=== PATIENT | male | born 1955 | race Caucasian/White ===

== ENCOUNTER 2022-07-09 06:11 | Inpatient (IN) | payer MEDICARE ==
[2022-07-04 13:50] VITALS: BMI 37.2
[2022-07-09] MEDS ORDERED: Levofloxacin 500 mg/D5W 100 ml Premix Bag ONE (08:13)
[2022-07-09] MEDS ORDERED: Iopamidol 30 ML ONE (08:43)
[2022-07-09] MEDS ORDERED: fentaNYL PF 100 MCG/2 ML SYRINGE ONE ×2 (08:46→08:55)
[2022-07-09 08:47] LABS: SARS-CoV-2 NAA Rapid Test DETECTED (NotDetected)
[2022-07-09] MEDS ORDERED: Glycopyrrolate 0.2 MG/ML 5 ML SYRINGE ONE (11:55)
[2022-07-09] MEDS ORDERED: Esmolol 100 MG/10 ML VIAL ONE (11:55)
[2022-07-09] MEDS ORDERED: Calcium Chloride 1 GM/10 ML Abboject SYRINGE ONE (11:55)
[2022-07-09] MEDS ORDERED: PROPOFOL 200 MG/20 ML VIAL ONE (11:55)
[2022-07-09] MEDS ORDERED: Phenylephrine 10 MG/ML VIAL ONE ×2 (11:55→12:14)
[2022-07-09] MEDS ORDERED: Ondansetron PF 4 MG/2 ML Vial ONE (11:55)
[2022-07-09] MEDS ORDERED: ePHEDrine 50 MG/ML VIAL ONE (11:55)
[2022-07-09] MEDS ORDERED: Rocuronium Bromide 10 MG/ML (10ML VIAL) ONE (11:55)
[2022-07-09] MEDS ORDERED: NEOSTIGMINE 3 MG/3 ML SYR 3 MG/3 ML SYRINGE ONE (11:55)
[2022-07-09] MEDS ORDERED: Norepinephrine 4 MG/4 ML VIAL ONE (12:14)
[2022-07-09] MEDS ORDERED: PHENYLEPHRINE-NS 100 MCG/ML 10 ML SYRINGE ONE (12:14)
[2022-07-09] MEDS ORDERED: B & O PR PRN (15:09)
[2022-07-09] MEDS ORDERED: D5 1/2 NS w/20 mEq KCL 1,000 ML IV SCH (15:15)
[2022-07-09] MEDS ORDERED: Ondansetron HCl/PF 4 MG/2 ML Vial IVP PRN (15:16)
[2022-07-09] MEDS ORDERED: Promethazine HCl 25 MG/ML VIAL IVPB PRN (15:16)
[2022-07-09] MEDS ORDERED: Promethazine HCl 25 MG/ML VIAL IM PRN (15:16)
[2022-07-09] MEDS ORDERED: B & O 30 MG SUPP PR PRN (15:42)
[2022-07-09] MEDS ORDERED: B & O 30 MG SUPP PR SCH (15:45)
[2022-07-09] MEDS ORDERED: HumaLOG 300 UNITS/3 ML VIAL SC PRN (16:04)
[2022-07-09] MEDS ORDERED: Dextrose 50% Abboject 50 ML SYRINGE SLOW IVP PRN (16:04)
[2022-07-09] MEDS ORDERED: Dextrose 5% in Water 1,000 ML IV PRN (16:04)
[2022-07-09] MEDS ORDERED: Pharmacy to Dose REMDESIVIR IVPB PRN (16:04)
[2022-07-09] MEDS ORDERED: Hyoscyamine Sulfate SL 0.125 mg Tablet ONE (16:05)
[2022-07-09] MEDS ORDERED: Hyoscyamine Sulfate SL 0.125 mg Tablet SL PRN (16:10)
[2022-07-09] MEDS ORDERED: Dexamethasone 6 MG in Sodium Chloride 0.9% 50 ML IVPB SCH (16:15)
[2022-07-09] MEDS ORDERED: Furosemide 20 MG/2 ML VIAL ONE (16:23)
[2022-07-09] MEDS ORDERED: Nicotine 7 MG PATCH TD PRN (16:25)
[2022-07-09] MEDS ORDERED: Albuterol 200 PUFF (6.7GM INHALER) INH PRN (16:35)
[2022-07-09] MEDS ORDERED: Furosemide 20 MG/2 ML VIAL SLOW IVP SCH (16:45)
[2022-07-09] MEDS ORDERED: HumaLOG 300 UNITS/3 ML VIAL ONE (17:01)
[2022-07-09 17:21] LABS: #Lymphocytes 0.9 thou/uL (1.20-3.40); #Monocytes 0.7 thou/uL (0.11-0.59); %Basophils 0.2 % (0.0-1.0); %Eosinophils 0.1 % (0.0-10.0); %Lymphocytes 6.4 % (21.0-51.0); %Monocytes 4.7 % (0.0-10.0); %Neutrophils 88.5 % (42.0-75.0); Mean Corpuscular HGB CONC 31.5 g/dL (32.0-36.0); Mean Corpuscular Hemoglobin 28.5 pg (27.0-31.0); Mean Corpuscular Volume 90.4 fl (78.0-98.0); Mean Platelet Volume 9.1 fL (7.4-10.4); Platelet Count 197 10x3/uL (130-400); RBC Distribution Width 12.9 % (11.5-14.5); White Blood Cell (WBC) Count 14.7 10x3/uL (4.8-10.8)
[2022-07-09] MEDS ORDERED: Dexamethasone 4 mg/ml Vial ONE (17:32)
[2022-07-09 17:41] LABS: Anion Gap 14 mmol/L (10-20); BUN (Urea Nitrogen) 16 mg/dL (8.4-25.7); Calc. Creatinine Clearance 138 mL/min (70-130); Carbon Dioxide 21 mmol/L (23-31); Chloride 107 mmol/L (98-107); Estimated GFR 87; Glucose 317 mg/dL (80-115); Potassium 4.5 mmol/L (3.5-5.1); Sodium 137 mmol/L (136-145)
[2022-07-09] MEDS: Dexamethasone 10 MG/ML VIAL SLOW IVP SCH (17:41)
[2022-07-09] MEDS ORDERED: Acetaminophen 325 MG TAB ONE (18:51)
[2022-07-09] MEDS: Albuterol 200 PUFF (6.7GM INHALER) INH SCH (19:03)
[2022-07-09] MEDS: Acetaminophen 325 MG TAB PO PRN (19:04)
[2022-07-09] MEDS ORDERED: glipiZIDE 10 MG TAB PO SCH (21:00)
[2022-07-09] MEDS ORDERED: Lisinopril 20 MG TAB PO SCH (21:00)
[2022-07-09] MEDS ORDERED: REMDESIVIR 200 MG in Sodium Chloride 0.9% 250 ML 210 ML IV SCH (21:00)
[2022-07-09] MEDS ORDERED: metFORMIN 500 MG TAB PO SCH (21:00)
[2022-07-09] MEDS: Amitriptyline HCl 25 MG TAB PO SCH (21:24)
[2022-07-09] MEDS: Docusate 100 MG CAP PO SCH (21:24)
[2022-07-09] MEDS: HumaLOG 300 UNITS/3 ML VIAL SC PRN (21:55)
[2022-07-10] MEDS: Albuterol 200 PUFF (6.7GM INHALER) INH SCH ×4 (03:55→18:28)
[2022-07-10] MEDS: HumaLOG 300 UNITS/3 ML VIAL SC PRN ×3 (05:06→21:29)
[2022-07-10 07:40] LABS: #Lymphocytes 1.6 thou/uL (1.20-3.40); #Monocytes 0.8 thou/uL (0.11-0.59); #Neutrophils 10.3 thou/uL (1.40-6.50); %Basophils 0.2 % (0.0-1.0); %Eosinophils 0.1 % (0.0-10.0); %Lymphocytes 12.4 % (21.0-51.0); %Monocytes 6.4 % (0.0-10.0); Hemoglobin 14.1 g/dL (14.0-18.0); Mean Corpuscular HGB CONC 32.3 g/dL (32.0-36.0); Mean Corpuscular Hemoglobin 29.1 pg (27.0-31.0); Mean Corpuscular Volume 90.2 fl (78.0-98.0); Mean Platelet Volume 9.1 fL (7.4-10.4); Platelet Count 194 10x3/uL (130-400); RBC Distribution Width 12.9 % (11.5-14.5); Red Blood Cell (RBC) Count 4.85 mill/uL (4.70-6.10); White Blood Cell (WBC) Count 12.8 10x3/uL (4.8-10.8)
[2022-07-10 07:54] LABS: Hemoglobin A1c 9.1 % (4.0-6.0)
[2022-07-10 08:08] LABS: Anion Gap 13 mmol/L (10-20); BUN (Urea Nitrogen) 14 mg/dL (8.4-25.7); Calc. Creatinine Clearance 133 mL/min (70-130); Calcium 8.9 mg/dL (7.8-10.44); Carbon Dioxide 21 mmol/L (23-31); Chloride 105 mmol/L (98-107); Estimated GFR 83; Glucose 349 mg/dL (80-115); Potassium 4.2 mmol/L (3.5-5.1); Sodium 135 mmol/L (136-145)
[2022-07-10] MEDS: Finasteride 5 MG TAB PO SCH (08:31)
[2022-07-10] MEDS: Venlafaxine HCl XR 150 MG CAP PO SCH (08:31)
[2022-07-10] MEDS: Docusate 100 MG CAP PO SCH ×2 (08:31→21:30)
[2022-07-10] MEDS ORDERED: Furosemide 20 MG/2 ML VIAL SLOW IVP SCH ×3 (09:00→18:00)
[2022-07-10] MEDS ORDERED: Amlodipine 5 MG TAB PO SCH ×2 (09:00)
[2022-07-10] MEDS: Insulin Glargine 30 UNITS/0.3 ML VIAL SC SCH (10:18)
[2022-07-10] MEDS: Acetaminophen 325 MG TAB PO PRN ×2 (15:46→22:45)
[2022-07-10] MEDS ORDERED: metFORMIN 500 MG TAB PO SCH (17:00)
[2022-07-10] MEDS ORDERED: Carvedilol 3.125 MG TAB PO SCH (18:00)
[2022-07-10] MEDS: Morphine 4 MG/ML VIAL SLOW IVP PRN ×2 (18:08→22:45)
[2022-07-10 18:38] LABS: Troponin I 0.149 ng/mL (< 0.028)
[2022-07-10] MEDS ORDERED: Aspirin 81 mg Enteric Coated Tablet PO SCH (19:45)
[2022-07-10] MEDS: Dexamethasone 10 MG/ML VIAL SLOW IVP SCH (19:59)
[2022-07-10] MEDS ORDERED: Lisinopril 10 MG TAB PO SCH (21:00)
[2022-07-10] MEDS: REMDESIVIR 100 MG in Sodium Chloride 0.9% 250 ML 230 ML IV SCH (21:29)
[2022-07-10] MEDS: Amitriptyline HCl 25 MG TAB PO SCH (21:30)
[2022-07-10] MEDS: Sacubitril 49 MG/Valsartan 51 MG TABLET PO SCH (21:30)
[2022-07-11] MEDS: Albuterol 200 PUFF (6.7GM INHALER) INH SCH ×4 (01:14→21:13)
[2022-07-11 05:03] LABS: #Lymphocytes 1.6 thou/uL (1.20-3.40); #Monocytes 1.1 thou/uL (0.11-0.59); #Neutrophils 15.9 thou/uL (1.40-6.50); %Basophils 0.2 % (0.0-1.0); %Eosinophils 0.2 % (0.0-10.0); %Lymphocytes 8.6 % (21.0-51.0); %Monocytes 5.9 % (0.0-10.0); %Neutrophils 85.1 % (42.0-75.0); Hemoglobin 14.7 g/dL (14.0-18.0); Mean Corpuscular HGB CONC 30.6 g/dL (32.0-36.0); Mean Corpuscular Hemoglobin 27.7 pg (27.0-31.0); Mean Corpuscular Volume 90.5 fl (78.0-98.0); Mean Platelet Volume 9.9 fL (7.4-10.4); Platelet Count 173 10x3/uL (130-400); RBC Distribution Width 12.9 % (11.5-14.5); Red Blood Cell (RBC) Count 5.31 mill/uL (4.70-6.10); White Blood Cell (WBC) Count 18.7 10x3/uL (4.8-10.8)
[2022-07-11 05:28] LABS: Anion Gap 18 mmol/L (10-20); BUN (Urea Nitrogen) 17 mg/dL (8.4-25.7); Calc. Creatinine Clearance 120 mL/min (70-130); Calcium 9.2 mg/dL (7.8-10.44); Carbon Dioxide 22 mmol/L (23-31); Chloride 99 mmol/L (98-107); Estimated GFR 73; Glucose 398 mg/dL (80-115); Potassium 4.5 mmol/L (3.5-5.1); Sodium 134 mmol/L (136-145)
[2022-07-11] MEDS: HumaLOG 300 UNITS/3 ML VIAL SC PRN ×4 (05:39→21:12)
[2022-07-11] MEDS ORDERED: Furosemide 20 MG/2 ML VIAL SLOW IVP SCH (06:00)
[2022-07-11] MEDS ORDERED: Empagliflozin 10 MG TAB PO SCH (09:00)
[2022-07-11] MEDS ORDERED: Spironolactone 25 MG TAB PO SCH (09:00)
[2022-07-11] MEDS: Carvedilol 3.125 MG TAB PO SCH ×2 (09:06→17:57)
[2022-07-11] MEDS: Aspirin 81 mg Enteric Coated Tablet PO SCH (09:06)
[2022-07-11] MEDS: Sacubitril 49 MG/Valsartan 51 MG TABLET PO SCH ×2 (09:07→21:13)
[2022-07-11] MEDS: Venlafaxine HCl XR 150 MG CAP PO SCH (09:07)
[2022-07-11] MEDS: Finasteride 5 MG TAB PO SCH (09:07)
[2022-07-11] MEDS: Docusate 100 MG CAP PO SCH ×2 (09:07→21:13)
[2022-07-11] MEDS: Insulin Glargine 30 UNITS/0.3 ML VIAL SC SCH (09:08)
[2022-07-11] MEDS ORDERED: Communication Order-Pharmacy FS SCH (12:15)
[2022-07-11] MEDS: Dexamethasone 10 MG/ML VIAL SLOW IVP SCH (17:57)
[2022-07-11] MEDS: Amitriptyline HCl 25 MG TAB PO SCH (21:13)
[2022-07-11] MEDS: REMDESIVIR 100 MG in Sodium Chloride 0.9% 250 ML 230 ML IV SCH (21:13)
[2022-07-12] MEDS: Albuterol 200 PUFF (6.7GM INHALER) INH SCH ×4 (02:59→17:25)
[2022-07-12] MEDS: Spironolactone 25 MG TAB PO SCH (05:51)
[2022-07-12] MEDS: Aspirin 81 mg Enteric Coated Tablet PO SCH (05:51)
[2022-07-12] MEDS: Carvedilol 3.125 MG TAB PO SCH ×2 (05:51→17:25)
[2022-07-12] MEDS: Sacubitril 49 MG/Valsartan 51 MG TABLET PO SCH ×2 (05:51→21:58)
[2022-07-12] MEDS: Venlafaxine HCl XR 150 MG CAP PO SCH (05:51)
[2022-07-12] MEDS: Docusate 100 MG CAP PO SCH ×2 (05:52→21:42)
[2022-07-12] MEDS: Finasteride 5 MG TAB PO SCH (05:52)
[2022-07-12] MEDS ORDERED: Lidocaine 1% (PF) 30 ML VIAL ONE (06:16)
[2022-07-12] MEDS ORDERED: Adenosine 6 MG/2 ML VIAL ONE (06:16)
[2022-07-12] MEDS ORDERED: Heparin 10,000 UNITS/ 10 ML VIAL ONE (06:16)
[2022-07-12] MEDS ORDERED: Nitroglycerin 100MG/250ML BOT 0 ML ONE (06:16)
[2022-07-12] MEDS ORDERED: Verapamil 5 MG/2 ML VIAL ONE (06:17)
[2022-07-12] MEDS ORDERED: FENTANYL 50 MCG/ML 1 ML VIAL ONE (07:05)
[2022-07-12] MEDS ORDERED: Midazolam HCl 2 mg/2 ml Vial ONE (07:05)
[2022-07-12] MEDS ORDERED: Nitroglycerin 0.4 MG TAB (25 Tab Bottle) SL PRN (07:48)
[2022-07-12] MEDS ORDERED: Sodium Chloride 0.9% 200 ML IV PRN (07:48)
[2022-07-12] MEDS ORDERED: Acetaminophen/Codeine 30-300mg Tablet PO PRN ×2 (07:48)
[2022-07-12] MEDS ORDERED: Iopamidol 370 76% 100 ML VIAL ONE (10:08)
[2022-07-12] MEDS: HumaLOG 300 UNITS/3 ML VIAL SC PRN ×3 (11:10→21:39)
[2022-07-12 16:14] LABS: Color Orange (.); Uric Acid 100 % (.)
[2022-07-12] MEDS: Dexamethasone 10 MG/ML VIAL SLOW IVP SCH (17:24)
[2022-07-12] MEDS: Atorvastatin Calcium 40 MG TAB PO SCH (21:42)
[2022-07-12] MEDS: Amitriptyline HCl 25 MG TAB PO SCH (21:42)
[2022-07-12] MEDS: REMDESIVIR 100 MG in Sodium Chloride 0.9% 250 ML 230 ML IV SCH (21:43)
[2022-07-13] MEDS: HumaLOG 300 UNITS/3 ML VIAL SC PRN ×4 (06:15→22:06)
[2022-07-13] MEDS: Albuterol 200 PUFF (6.7GM INHALER) INH SCH ×3 (07:41→10:55)
[2022-07-13 08:07] LABS: Anion Gap 13 mmol/L (10-20); BUN (Urea Nitrogen) 30 mg/dL (8.4-25.7); Calc. Creatinine Clearance 112 mL/min (70-130); Carbon Dioxide 24 mmol/L (23-31); Chloride 105 mmol/L (98-107); Estimated GFR 80; Glucose 271 mg/dL (80-115); Sodium 138 mmol/L (136-145)
[2022-07-13] MEDS: Insulin Glargine 30 UNITS/0.3 ML VIAL SC SCH (09:04)
[2022-07-13] MEDS: Aspirin 81 mg Enteric Coated Tablet PO SCH (09:04)
[2022-07-13] MEDS: Empagliflozin 10 MG TAB PO SCH (09:04)
[2022-07-13] MEDS: Sacubitril 49 MG/Valsartan 51 MG TABLET PO SCH ×2 (09:05→21:24)
[2022-07-13] MEDS: Carvedilol 3.125 MG TAB PO SCH ×2 (09:05→17:06)
[2022-07-13] MEDS: Spironolactone 25 MG TAB PO SCH (09:05)
[2022-07-13] MEDS: Venlafaxine HCl XR 150 MG CAP PO SCH (09:05)
[2022-07-13] MEDS: Finasteride 5 MG TAB PO SCH (09:05)
[2022-07-13] MEDS: Docusate 100 MG CAP PO SCH ×2 (09:05→21:22)
[2022-07-13] MEDS: Dexamethasone 10 MG/ML VIAL SLOW IVP SCH (17:05)
[2022-07-13] MEDS: Amitriptyline HCl 25 MG TAB PO SCH (21:23)
[2022-07-13] MEDS: Atorvastatin Calcium 40 MG TAB PO SCH (21:23)
[2022-07-13] MEDS: REMDESIVIR 100 MG in Sodium Chloride 0.9% 250 ML 230 ML IV SCH (21:24)
[2022-07-14] MEDS: Albuterol 200 PUFF (6.7GM INHALER) INH SCH ×3 (03:45→20:14)
[2022-07-14] MEDS: HumaLOG 300 UNITS/3 ML VIAL SC PRN ×4 (07:38→21:51)
[2022-07-14] MEDS: Carvedilol 3.125 MG TAB PO SCH ×2 (09:48→18:34)
[2022-07-14] MEDS: Spironolactone 25 MG TAB PO SCH (09:49)
[2022-07-14] MEDS: Docusate 100 MG CAP PO SCH ×2 (09:49→20:13)
[2022-07-14] MEDS: Finasteride 5 MG TAB PO SCH (09:49)
[2022-07-14] MEDS: Empagliflozin 10 MG TAB PO SCH (09:49)
[2022-07-14] MEDS: Venlafaxine HCl XR 150 MG CAP PO SCH (09:49)
[2022-07-14] MEDS: Aspirin 81 mg Enteric Coated Tablet PO SCH (09:49)
[2022-07-14] MEDS: Insulin Glargine 30 UNITS/0.3 ML VIAL SC SCH (09:50)
[2022-07-14] MEDS: Dexamethasone 10 MG/ML VIAL SLOW IVP SCH (20:07)
[2022-07-14] MEDS: Atorvastatin Calcium 40 MG TAB PO SCH (20:13)
[2022-07-14] MEDS: Amitriptyline HCl 25 MG TAB PO SCH (20:14)
[2022-07-15] MEDS: Albuterol 200 PUFF (6.7GM INHALER) INH SCH ×2 (02:41→06:52)
[2022-07-15] MEDS: HumaLOG 300 UNITS/3 ML VIAL SC PRN (06:20)
[2022-07-15] MEDS ORDERED: Sacubitril 49 MG/Valsartan 51 MG TABLET PO SCH (09:00)
[2022-07-15] MEDS: Carvedilol 3.125 MG TAB PO SCH (09:53)
[2022-07-15] MEDS: Finasteride 5 MG TAB PO SCH (09:54)
[2022-07-15] MEDS: Docusate 100 MG CAP PO SCH (09:54)
[2022-07-15] MEDS: Aspirin 81 mg Enteric Coated Tablet PO SCH (09:54)
[2022-07-15] MEDS: Spironolactone 25 MG TAB PO SCH (09:54)
[2022-07-15] MEDS: Empagliflozin 10 MG TAB PO SCH (09:54)
[2022-07-15] MEDS: Insulin Glargine 30 UNITS/0.3 ML VIAL SC SCH (09:55)
[2022-07-15] MEDS: Venlafaxine HCl XR 150 MG CAP PO SCH (09:55)
[2022-07-15 11:32] VITALS: TEMP 98
[2022-07-15 12:46] VITALS: BP 114/82
== END 2022-07-15 14:51 | disposition home or self-care (01) | DRG 713 ==
LOC: SDC 06:11 → SURG A 15:04 → 2NO 07-10 12:28
PROVIDERS: ADMIT Urology; ATTEND Urology
PROC: 0TCB8ZZ Extirpation of Matter from Bladder, Via Natural or Artificial Opening Endoscopic (ICD-10-PCS; principal; 2022-07-09)
PROC: 0VT08ZZ Resection of Prostate, Via Natural or Artificial Opening Endoscopic (ICD-10-PCS; 2022-07-09)
PROC: XW033E5 Introduction of Remdesivir Anti-infective into Peripheral Vein, Percutaneous Approach, New Technology Group 5 (ICD-10-PCS; 2022-07-09)
PROC: 8E0ZXY6 Isolation (ICD-10-PCS; 2022-07-09)
PROC: 3E033XZ Introduction of Vasopressor into Peripheral Vein, Percutaneous Approach (ICD-10-PCS; 2022-07-09)
PROC: 4A023N7 Measurement of Cardiac Sampling and Pressure, Left Heart, Percutaneous Approach (ICD-10-PCS; 2022-07-12)
PROC: B2111ZZ Fluoroscopy of Multiple Coronary Arteries using Low Osmolar Contrast (ICD-10-PCS; 2022-07-12)
PROC: B2151ZZ Fluoroscopy of Left Heart using Low Osmolar Contrast (ICD-10-PCS; 2022-07-12)
DX: N40.1 Benign prostatic hyperplasia with lower urinary tract symptoms (principal); I50.23 Acute on chronic systolic (congestive) heart failure; J96.01 Acute respiratory failure with hypoxia; U07.1 COVID-19; J12.82 Pneumonia due to coronavirus disease 2019; I42.8 Other cardiomyopathies; N21.0 Calculus in bladder; E78.5 Hyperlipidemia, unspecified; E11.9 Type 2 diabetes mellitus without complications; N52.9 Male erectile dysfunction, unspecified; F17.220 Nicotine dependence, chewing tobacco, uncomplicated; I11.0 Hypertensive heart disease with heart failure; F41.9 Anxiety disorder, unspecified; G47.33 Obstructive sleep apnea (adult) (pediatric); I25.10 Atherosclerotic heart disease of native coronary artery without angina pectoris; E66.01 Morbid (severe) obesity due to excess calories; F32.A Depression, unspecified; Z87.442 Personal history of urinary calculi; Z79.899 Other long term (current) drug therapy; Z79.84 Long term (current) use of oral hypoglycemic drugs; Z87.01 Personal history of pneumonia (recurrent); Z71.6 Tobacco abuse counseling; Z68.32 Body mass index [BMI] 32.0-32.9, adult
CPT/HCPCS: 36415; 36416; 71045; 80048; 82365; 83036; 83880; 84484; 85025; 88300; 88305; 93005; 93010; 93306; 93458; 93798; 99152; C1769; J0153; J0248; J1100; J1644; J1815; J1940; J1956; J2001; J2250; J2270; J2370; J2405; J2704; J3010; J3490; J7050; Q9967; U0002

== ENCOUNTER 2025-07-25 13:27 | Inpatient (IN) | payer MEDICARE, OTHER ==
[~2025-07-25 13:27] MED LIST: Iopamidol-370 76% 500 ML MDV (1 ML CHARGE) ONE
[2025-07-25] MEDS ORDERED: niCARdipine 25 MG/10 ML SDV ONE ×2 (13:52→17:18)
[2025-07-25 14:14] LABS: #Basophils 0.07 10x3/uL (0.0-0.2); #Eosinophils 0.19 10x3/uL (0.0-0.7); #Monocytes 0.94 10x3/uL (0.11-0.59); #Neutrophils 10.31 10x3/uL (1.40-6.50); %Basophils 0.5 % (0.0-1.0); %Eosinophils 1.4 % (0.0-10.0); %Lymphocytes 15.2 % (21.0-51.0); %Monocytes 6.9 % (0.0-10.0); %Neutrophils 75.7 % (42.0-75.0); Hematocrit 42.2 % (42.0-52.0); Hemoglobin 13.1 g/dL (14.0-18.0); Mean Corpuscular Hemoglobin 25.7 pg (27.0-31.0); Mean Corpuscular Volume 82.7 fL (78.0-98.0); Platelet Count 250 10x3/uL (130-400); Red Blood Cell (RBC) Count 5.10 mill/uL (4.70-6.10); White Blood Cell (WBC) Count 13.62 10x3/uL (4.8-10.8)
[2025-07-25 14:28] LABS: INR-International Normal Ratio 1.1; Prothrombin Time 14.4 sec (12.0-14.7)
[2025-07-25 14:29] LABS: PTT 31.1 sec (22.9-36.1)
[2025-07-25 14:32] LABS: ALT (SGPT) 15 U/L (Less than 45); AST (SGOT) 14 U/L (11-34); Albumin 3.3 g/dL (3.1-4.5); Alkaline Phosphatase 109 U/L (40-110); Anion Gap 8 mmol/L (10-20); BUN (Urea Nitrogen) 12 mg/dL (8.4-25.7); Bilirubin, Total 0.3 mg/dL (0.3-1.2); Calc. Creatinine Clearance 0 mL/min (70-130); Calcium 8.4 mg/dL (7.8-10.44); Carbon Dioxide 20 mmol/L (23-31); Chloride 113 mmol/L (98-107); Globulin 2.7 g/dL (2.4-3.5); Glucose 175 mg/dL (83-110); Potassium 4.2 mmol/L (3.5-5.1); Sodium 137 mmol/L (136-145)
[2025-07-25 14:33] LABS: Magnesium 1.7 mg/dL (1.6-2.6)
[2025-07-25 14:34] LABS: Acetaminophen Less than 10 mcg/mL (Less than 10); Salicylate Less than 8.0 mg/dL (Less than 8.0)
[2025-07-25 15:23] LABS: Bacteria/HPF None Seen HPF (None Seen); CAUTI Indications for Culture Dysuria,urgency,freq; Glucose, Urine (Dipstick) Greater than 1000 mg/dL (Negative); Leukocyte Negative Leu/uL (Negative); Protein, Urine (Dipstick) Negative (Neg-Trace); RBC/HPF None Seen HPF (0-3); Specific Gravity, Urine 1.045 (1.002-1.036); WBC/HPF 0-3 HPF (0-3)
[2025-07-25 15:29] LABS: Urine Culture Reflex No No
[2025-07-25 15:31] LABS: Cocaine Metabolite Screen Negative (Negative); THC/Cannabinoid Screen PRELIM POSITIVE (Negative); Tricyclic Screen Negative (Negative)
[2025-07-25] MEDS ORDERED: Glucagon 1 MG/ML KIT IM PRN (17:37)
[2025-07-25] MEDS ORDERED: Dextrose 50% Abboject 50 ML SYRINGE SLOW IVP PRN (17:37)
[2025-07-25] MEDS: niCARdipine 25 MG in Sodium Chloride 0.9% 250 ML 250 ML IVPB SCH (20:48)
[2025-07-25] MEDS: Carvedilol 6.25 MG TAB PO SCH (22:30)
[2025-07-25] MEDS: Sacubitril 49 MG/Valsartan 51 MG TABLET PO SCH (22:30)
[2025-07-26] MEDS: Acetaminophen 325 MG TAB PO PRN (00:23)
[2025-07-26 05:09] LABS: #Basophils 0.07 10x3/uL (0.0-0.2); #Eosinophils 0.21 10x3/uL (0.0-0.7); #Monocytes 1.11 10x3/uL (0.11-0.59); #Neutrophils 11.23 10x3/uL (1.40-6.50); %Basophils 0.4 % (0.0-1.0); %Eosinophils 1.3 % (0.0-10.0); %Lymphocytes 18.7 % (21.0-51.0); %Monocytes 7.1 % (0.0-10.0); %Neutrophils 72.1 % (42.0-75.0); Hematocrit 44.4 % (42.0-52.0); Hemoglobin 13.8 g/dL (14.0-18.0); Mean Corpuscular Hemoglobin 25.6 pg (27.0-31.0); Mean Corpuscular Volume 82.4 fL (78.0-98.0); Platelet Count 277 10x3/uL (130-400); Red Blood Cell (RBC) Count 5.39 mill/uL (4.70-6.10); White Blood Cell (WBC) Count 15.60 10x3/uL (4.8-10.8)
[2025-07-26 05:49] LABS: Anion Gap 16 mmol/L (10-20); BUN (Urea Nitrogen) 9 mg/dL (8.4-25.7); Calc. Creatinine Clearance 232 mL/min (70-130); Calcium 9.0 mg/dL (7.8-10.44); Carbon Dioxide 21 mmol/L (23-31); Chloride 107 mmol/L (98-107); Glucose 164 mg/dL (83-110); Potassium 3.6 mmol/L (3.5-5.1); Sodium 140 mmol/L (136-145)
[2025-07-26] MEDS: Carvedilol 6.25 MG TAB PO SCH (09:48)
[2025-07-26] MEDS: Sacubitril 49 MG/Valsartan 51 MG TABLET PO SCH ×2 (09:48→21:14)
[2025-07-26] MEDS: Insulin Glargine 30 UNITS/0.3 ML VIAL SC SCH (09:49)
[2025-07-26] MEDS: Senokot S 8.6-50 MG TAB PO SCH (09:50)
[2025-07-26 13:32] VITALS: BMI 30.9
[2025-07-26] MEDS: Mupirocin 1 GM TUBE NASAL DECOLONIZATION NASAL SCH (20:31)
[2025-07-26] MEDS: Melatonin 3 MG TAB PO PRN (20:32)
[2025-07-26] MEDS: Finasteride 5 MG TAB PO SCH (20:33)
[2025-07-27 04:22] LABS: #Basophils 0.07 10x3/uL (0.0-0.2); #Eosinophils 0.20 10x3/uL (0.0-0.7); #Monocytes 1.31 10x3/uL (0.11-0.59); #Neutrophils 11.20 10x3/uL (1.40-6.50); %Basophils 0.4 % (0.0-1.0); %Eosinophils 1.3 % (0.0-10.0); %Lymphocytes 19.0 % (21.0-51.0); %Monocytes 8.3 % (0.0-10.0); %Neutrophils 70.6 % (42.0-75.0); Hematocrit 46.6 % (42.0-52.0); Hemoglobin 14.4 g/dL (14.0-18.0); Mean Corpuscular Hemoglobin 25.5 pg (27.0-31.0); Mean Corpuscular Volume 82.5 fL (78.0-98.0); Platelet Count 275 10x3/uL (130-400); Red Blood Cell (RBC) Count 5.65 mill/uL (4.70-6.10); White Blood Cell (WBC) Count 15.86 10x3/uL (4.8-10.8)
[2025-07-27 04:35] LABS: Anion Gap 13 mmol/L (10-20); BUN (Urea Nitrogen) 12 mg/dL (8.4-25.7); Calc. Creatinine Clearance 197 mL/min (70-130); Calcium 9.2 mg/dL (7.8-10.44); Carbon Dioxide 22 mmol/L (23-31); Chloride 107 mmol/L (98-107); Glucose 182 mg/dL (83-110); Potassium 3.4 mmol/L (3.5-5.1); Sodium 139 mmol/L (136-145)
[2025-07-27] MEDS: ALPRAZolam 0.25 MG TAB PO SCH (10:38)
[2025-07-27] MEDS: Carvedilol 25 MG TAB PO SCH (10:38)
[2025-07-27] MEDS: Carvedilol 6.25 MG TAB PO SCH (17:09)
[2025-07-27] MEDS: ALPRAZolam 0.25 MG TAB PO PRN (20:15)
[2025-07-27] MEDS: HYDROcodone/Acetaminophen 10/325 mg Tablet PO PRN (21:49)
[2025-07-28 03:56] LABS: #Basophils 0.06 10x3/uL (0.0-0.2); #Eosinophils 0.29 10x3/uL (0.0-0.7); #Monocytes 1.26 10x3/uL (0.11-0.59); #Neutrophils 9.39 10x3/uL (1.40-6.50); %Basophils 0.4 % (0.0-1.0); %Eosinophils 2.0 % (0.0-10.0); %Lymphocytes 23.8 % (21.0-51.0); %Monocytes 8.7 % (0.0-10.0); %Neutrophils 64.8 % (42.0-75.0); Hematocrit 45.1 % (42.0-52.0); Hemoglobin 13.7 g/dL (14.0-18.0); Mean Corpuscular Hemoglobin 25.0 pg (27.0-31.0); Mean Corpuscular Volume 82.4 fL (78.0-98.0); Platelet Count 257 10x3/uL (130-400); Red Blood Cell (RBC) Count 5.47 mill/uL (4.70-6.10); White Blood Cell (WBC) Count 14.50 10x3/uL (4.8-10.8)
[2025-07-28 04:20] LABS: Anion Gap 12 mmol/L (10-20); BUN (Urea Nitrogen) 16 mg/dL (8.4-25.7); Calc. Creatinine Clearance 182 mL/min (70-130); Calcium 9.3 mg/dL (7.8-10.44); Carbon Dioxide 25 mmol/L (23-31); Chloride 108 mmol/L (98-107); Glucose 167 mg/dL (83-110); Potassium 4.0 mmol/L (3.5-5.1); Sodium 141 mmol/L (136-145)
[2025-07-29 04:43] LABS: #Basophils 0.07 10x3/uL (0.0-0.2); #Eosinophils 0.22 10x3/uL (0.0-0.7); #Monocytes 1.09 10x3/uL (0.11-0.59); #Neutrophils 9.09 10x3/uL (1.40-6.50); %Basophils 0.5 % (0.0-1.0); %Eosinophils 1.6 % (0.0-10.0); %Lymphocytes 24.6 % (21.0-51.0); %Monocytes 7.8 % (0.0-10.0); %Neutrophils 65.2 % (42.0-75.0); Hematocrit 44.8 % (42.0-52.0); Hemoglobin 14.2 g/dL (14.0-18.0); Mean Corpuscular Hemoglobin 25.9 pg (27.0-31.0); Mean Corpuscular Volume 81.6 fL (78.0-98.0); Platelet Count 279 10x3/uL (130-400); Red Blood Cell (RBC) Count 5.49 mill/uL (4.70-6.10); White Blood Cell (WBC) Count 13.93 10x3/uL (4.8-10.8)
[2025-07-29 05:05] LABS: Anion Gap 14 mmol/L (10-20); BUN (Urea Nitrogen) 17 mg/dL (8.4-25.7); Calc. Creatinine Clearance 195 mL/min (70-130); Calcium 9.1 mg/dL (7.8-10.44); Carbon Dioxide 24 mmol/L (23-31); Chloride 107 mmol/L (98-107); Glucose 143 mg/dL (83-110); Potassium 3.7 mmol/L (3.5-5.1); Sodium 141 mmol/L (136-145)
[2025-07-29 07:23] VITALS: BMI 30.3
[2025-07-29] MEDS ORDERED: Nitroglycerin 0.4 MG TAB (25 Tab Bottle) SL PRN (07:38)
[2025-07-29 22:18] VITALS: BP 114/77; TEMP 98.1
[2025-07-30] MEDS ORDERED: FLU (Fluad Triv) 25-26 (65UP)PF 45 MCG/0.5 ML Syringe IM ONE (09:00)
== END 2025-07-29 22:51 | disposition swing bed (61) | DRG 65 ==
LOC: ERS 13:27 → ERHOLD 15:18 → IMCU/EMU 18:55 → 2SE 07-26 14:39
PROVIDERS: ADMIT Family Medicine; ATTEND Internal Medicine
DX: I61.0 Nontraumatic intracerebral hemorrhage in hemisphere, subcortical (principal); I16.1 Hypertensive emergency; I50.32 Chronic diastolic (congestive) heart failure; I42.9 Cardiomyopathy, unspecified; R27.0 Ataxia, unspecified; Z79.899 Other long term (current) drug therapy; E78.5 Hyperlipidemia, unspecified; E11.9 Type 2 diabetes mellitus without complications; F41.9 Anxiety disorder, unspecified; F32.A Depression, unspecified; N40.0 Benign prostatic hyperplasia without lower urinary tract symptoms; Z98.890 Other specified postprocedural states; I11.0 Hypertensive heart disease with heart failure; R53.81 Other malaise; I25.10 Atherosclerotic heart disease of native coronary artery without angina pectoris; R29.707 NIHSS score 7
CPT/HCPCS: 36415; 36416; 70450; 70496; 70498; 71045; 80048; 80053; 80306; 80307; 81001; 83735; 84484; 85025; 85610; 85730; 87086; 93005; 95700; 95711; 95957; 96365; 96366; J1815; J7050; Q9967